=== PATIENT | male | born 2000 | race African-American/Black ===

== ENCOUNTER 2022-02-24 19:07 | Emergency (ER) | payer BC ==
[~2022-02-24] VITALS: Ht 175.3 cm; Wt 91.0 kg
[2022-02-24 23:26] LABS: BASOPHILS % 0.7 % (0.0-2.0); CHLORIDE 105 mEq/L (98-107); EOSINOPHILS % 0.1 % (0.0-5.0); HEMATOCRIT. 46.9 % (42.0-52.0); HEMOGLOBIN. 15.4 g/dL (14.0-18.0); LYMPHOCYTES % 37.5 % (20.0-50.0); MEAN CORPUSCULAR HEMOGLOBIN 29.5 pg (28.0-32.0); MEAN CORPUSCULAR VOLUME 90.1 fL (80.0-94.0); MEAN PLATELET VOLUME 8.3 fl (7.4-10.4); MONOCYTES % 8.7 % (2.0-8.0); PLATELET 208 x1000/uL (130-400); RED BLOOD CELL COUNT 5.21 mill/uL (4.7-6.1); RED CELL DISTRIBUTION WIDTH 14.7 % (11.6-14.6)
[2022-02-25] VITALS: BP 155/68
[2022-02-25] MEDS ORDERED: T3 PO (09:46)
[2022-02-25] MEDS ORDERED: OMEP20TA23 PO (09:53)
== END 2022-02-25 00:25 | disposition home or self-care (01) ==
LOC: ER 19:07
DX: R07.89 Other chest pain (principal); R03.0 Elevated blood-pressure reading, without diagnosis of hypertension
CPT/HCPCS: 36415; 71045; 80053; 83880; 84484; 85025; 93005; 99285

== ENCOUNTER 2022-02-25 07:26 | Emergency (ER) | payer BC ==
[~2022-02-25] VITALS: Ht 175.3 cm; Wt 100.0 kg
[2022-02-25 07:41] VITALS: BP 118/74
[2022-02-25] MEDS ORDERED: MORPHINE SULFATE 4 MG/ML CPJ (NOT FOR IM USE) IV STA (07:41)
[2022-02-25 08:15] LABS: CHLORIDE 105 mEq/L (98-107)
[2022-02-25 08:17] LABS: BASOPHILS % 0.6 % (0.0-2.0); EOSINOPHILS % 0.5 % (0.0-5.0); HEMATOCRIT. 44.5 % (42.0-52.0); LYMPHOCYTES % 53.5 % (20.0-50.0); MEAN CORPUSCULAR HEMOGLOBIN 30.2 pg (28.0-32.0); MEAN CORPUSCULAR VOLUME 89.9 fL (80.0-94.0); MEAN PLATELET VOLUME 8.5 fl (7.4-10.4); NEUTROPHILS % 32.4 % (40.0-76.0); PLATELET 214 x1000/uL (130-400); RED BLOOD CELL COUNT 4.95 mill/uL (4.7-6.1); RED CELL DISTRIBUTION WIDTH 14.5 % (11.6-14.6)
[2022-02-25 08:26] LABS: ETHANOL BLOOD < 10 mg/dL
[2022-02-25] MEDS ORDERED: T3 PO (09:46)
[2022-02-25] MEDS ORDERED: OMEP20TA23 PO (09:53)
== END 2022-02-25 10:15 | disposition home or self-care (01) ==
LOC: ER 07:26
DX: R07.2 Precordial pain (principal); R00.0 Tachycardia, unspecified
CPT/HCPCS: 36415; 71045; 80053; 80320; 83880; 84484; 85025; 85379; 93005; 99285; G0480

== ENCOUNTER 2024-02-01 05:53 | Emergency (ER) | payer BC, OTHER ==
[~2024-02-01] VITALS: Ht 177.8 cm; Wt 134.0 kg
[~2024-02-01 05:53] MED LIST: OMEP20TA23 PO; T3 PO
[2024-02-01 05:59] VITALS: TEMP 98.2; O2SAT 98
[2024-02-01] MEDS: FAMOTIDINE 20MG/2ML VIAL IV ONE (06:59)
[2024-02-01] MEDS: METHYLPREDNISOLONE SOD SUCC 125MG/2ML (ACT-O-VIAL) IV STA (06:59)
[2024-02-01] MEDS: DIPHENHYDRAMINE 50MG/ML VIAL IV ONE (06:59)
[2024-02-01 07:59] LABS: HEMATOCRIT. 38.6 % (42.0-52.0); HEMOGLOBIN. 12.2 g/dL (14.0-18.0); MEAN CORPUSCULAR HEMOGLOBIN 26.3 pg (28.0-32.0); MEAN CORPUSCULAR HGB CONC 31.7 g/dL (31.0-37.0); MEAN CORPUSCULAR VOLUME 82.9 fL (80.0-94.0); MEAN PLATELET VOLUME 8.2 fl (7.4-10.4); PLATELET 303 x1000/uL (130-400); RED BLOOD CELL COUNT 4.66 mill/uL (4.7-6.1); RED CELL DISTRIBUTION WIDTH 17.5 % (11.6-14.6)
[2024-02-01 08:07] LABS: CHLORIDE 105 mEq/L (98-107); DIFFERENTIAL COMMENT 1; POTASSIUM 4.2 mEq/L (3.5-5.1); SODIUM 138 mEq/L (136-145)
[2024-02-01 08:08] LABS: CARBON DIOXIDE 26 mEq/L (21-32)
[2024-02-01 08:13] LABS: CALCIUM 8.8 mg/dL (8.7-10.4); CREATININE 0.9 mg/dL (0.6-1.3); GLUCOSE 98 mg/dL (70-105); UREA NITROGEN BLOOD 11 mg/dL (9-23)
[2024-02-01 08:15] LABS: ALANINE AMINOTRANSFERASE 157 IU/L (10-49); ALBUMIN 4.3 g/dL (3.2-4.8); ASPARTATE AMINOTRANSFERASE 102 IU/L (<34); BILIRUBIN TOTAL 0.4 mg/dL (0.1-1.0); PROTEIN TOTAL 7.1 g/dL (6.0-8.3)
[2024-02-01 08:16] LABS: TROPONIN I HIGH SENSITIVITY < 4 ng/L (3.0-53)
[2024-02-01 08:38] VITALS: BP 117/80; PULSE 67; RESP 7
[2024-02-01] MEDS ORDERED: P20 MT (09:31)
[2024-02-01] MEDS ORDERED: DIPH25CA83 PO (09:31)
[2024-02-01] MEDS ORDERED: EPIN0.3P3 IM (09:31)
[2024-02-01 11:00] LABS: ANISOCYTOSIS 1+; PLATELET ESTIMATE NORMAL
== END 2024-02-01 10:45 | disposition home or self-care (01) ==
LOC: ER 06:09
DX: R22.1 Localized swelling, mass and lump, neck (principal); J02.9 Acute pharyngitis, unspecified; I11.0 Hypertensive heart disease with heart failure; I50.9 Heart failure, unspecified
CPT/HCPCS: 80053; 87430; 83880; 85025; 84484; 87070; 36415; 71045; 93005; 96374; 96375; 99285; J1200; J3490; J2930; Z7610

== ENCOUNTER 2025-03-23 14:26 | Emergency (ER) | payer MEDICAID, OTHER ==
[~2025-03-23] VITALS: Ht 180.3 cm; Wt 138.0 kg
[~2025-03-23 14:26] MED LIST changes: +DIPH25CA83 PO; +EPIN0.3P3 IM; +P20 MT
[2025-03-23 14:40] VITALS: TEMP 36.7; O2SAT 95
[2025-03-23] MEDS: LIDOCAINE HCL 1% 20ML VIAL INFIL ONE (15:30)
[2025-03-23] MEDS ORDERED: IBUP-2030 MT (16:45)
[2025-03-23] MEDS ORDERED: LIDO700A30 TP (16:45)
[2025-03-23 16:46] LABS: CLARITY URINE CLEAR (CLEAR); COLOR URINE DARK YELLOW (YELLOW); GLUCOSE URINE NEGATIVE (NEGATIVE); KETONES URINE TRACE (NEGATIVE); LEUKOCYTE ESTERASE URINE TRACE (NEGATIVE); NITRITE URINE NEGATIVE (NEGATIVE); OCCULT BLOOD URINE NEGATIVE (NEGATIVE); PH URINE 6.5 (4.5-8.0); PROTEIN URINE 1+ (NEGATIVE); SPECIFIC GRAVITY URINE 1.028 (1.005-1.030); UROBILINOGEN URINE 1.0 E.U./dL (0.2-1.0)
[2025-03-23 17:05] LABS: BACTERIA URINE 1+; RBC URINE NONE SEEN /hpf (0-2); WBC URINE 0-2 /hpf (0-2)
[2025-03-23 17:06] LABS: SQUAMOUS EPITHELIAL CELL URINE 1+ /lpf (RARE/1+)
[2025-03-23 17:39] VITALS: BP 138/90; PULSE 101; RESP 18; O2SAT 100
== END 2025-03-23 17:29 | disposition home or self-care (01) ==
LOC: ER 14:26
DX: M54.50 Low back pain, unspecified (principal); Z79.899 Other long term (current) drug therapy
CPT/HCPCS: 81003; 99283; J2003; Z7610

== ENCOUNTER 2025-03-28 12:38 | Emergency (ER) | payer MEDICAID ==
[~2025-03-28] VITALS: Ht 182.9 cm; Wt 125.0 kg
[~2025-03-28 12:38] MED LIST changes: +IBUP-2030 MT; +LIDO700A30 TP
[2025-03-28 12:43] VITALS: O2SAT 98
[2025-03-28] MEDS ORDERED: LIDOCAINE/EPINEPHR/TETRACAINE 3ML TP ONE (14:00)
[2025-03-28] MEDS ORDERED: DEXAMETHASONE 4MG/ML 1ML VIAL IV ONE (14:00)
[2025-03-28] MEDS: DEXAMETHASONE 4MG/ML 1ML VIAL IM ONE (14:39)
[2025-03-28] MEDS: CAPSAICIN 0.075% CREAM 57GM TOP PRN (14:39)
[2025-03-28] MEDS ORDERED: GABA-1180 MT (14:51)
[2025-03-28] MEDS ORDERED: METH4TAB95 MT (14:51)
[2025-03-28 15:25] VITALS: BP 149/98; PULSE 88; RESP 19; TEMP 36.7; O2SAT 95
== END 2025-03-28 15:27 | disposition home or self-care (01) ==
LOC: ER 12:38
DX: G89.29 Other chronic pain (principal); M54.50 Low back pain, unspecified; I10 Essential (primary) hypertension; Z79.899 Other long term (current) drug therapy
CPT/HCPCS: 99283; 72100; 96372; J1100